=== PATIENT | male | born 1960 | race African-American/Black ===

== ENCOUNTER 2024-06-30 14:36 | Emergency (ER) | payer MEDICARE, OTHER ==
[~2024-06-30] VITALS: Ht 190.5 cm; Wt 85.0 kg
[2024-06-30 14:40] VITALS: O2SAT 99
[2024-06-30 16:34] LABS: BASOPHILS % 0.3 % (0.0-2.0); DIFFERENTIAL COMMENT 0; EOSINOPHILS % 1.3 % (0.0-5.0); HEMOGLOBIN. 13.7 g/dL (14.0-18.0); LYMPHOCYTES % 15.1 % (20.0-50.0); MEAN CORPUSCULAR HGB CONC 32.8 g/dL (31.0-37.0); MEAN CORPUSCULAR VOLUME 100.9 fL (80.0-94.0); MONOCYTES % 5.9 % (2.0-8.0); NEUTROPHILS % 77.4 % (40.0-76.0); PLATELET 209 x1000/uL (130-400); RED BLOOD CELL COUNT 4.16 mill/uL (4.7-6.1); WHITE BLOOD COUNT 6.2 x1000/uL (4.5-11.0)
[2024-06-30 16:41] LABS: CHLORIDE 109 mEq/L (98-107); POTASSIUM 3.8 mEq/L (3.5-5.1); SODIUM 140 mEq/L (136-145)
[2024-06-30 16:42] LABS: CALCIUM 9.4 mg/dL (8.7-10.4); CARBON DIOXIDE 26 mEq/L (21-32)
[2024-06-30 16:44] LABS: INR 0.9; PROTHROMBIN TIME 10.6 sec (9.6-11.0)
[2024-06-30 16:47] LABS: CREATININE 1.3 mg/dL (0.6-1.3); GLUCOSE 106 mg/dL (70-105); UREA NITROGEN BLOOD 19 mg/dL (9-23)
[2024-06-30 16:48] LABS: TROPONIN I HIGH SENSITIVITY 30 ng/L (3.0-53)
[2024-06-30 17:56] VITALS: BP 152/81; PULSE 98; RESP 20; TEMP 98.5
== END 2024-06-30 17:59 | disposition home or self-care (01) ==
LOC: ER 14:36
DX: R53.1 Weakness (principal); I95.9 Hypotension, unspecified
CPT/HCPCS: 36415; 71045; 80048; 83605; 83880; 84484; 85025; 99284